=== PATIENT | female | born 1955 | race Native Hawaiian/Other Pacific Islander ===

== ENCOUNTER 2020-09-15 12:10 | Outpatient (CLI) | payer OTHER ==
[2020-09-15 12:37] LABS: PLATELET COUNT 284 K/uL (152-353)
[2020-09-15 13:00] LABS: POTASSIUM 3.9 mmol/L (3.6-5.2)
== END 2020-09-15 21:34 | disposition home or self-care (01) ==
LOC: LABW 12:10
PROVIDERS: ATTEND Nurse Practitioner Adult Health
DX: I48.0 Paroxysmal atrial fibrillation (principal); Z79.899 Other long term (current) drug therapy
CPT/HCPCS: 36415; 80053; 80061; 82248; 84436; 84443; 84479; 85027

== ENCOUNTER 2020-09-29 11:08 | Outpatient (CLI) | payer OTHER | END 2020-09-29 23:00 | disposition home or self-care (01) | LOC: LABW 11:08 | PROVIDERS: ATTEND Specialist | DX: I48.91 Unspecified atrial fibrillation (principal) | CPT/HCPCS: 36415; 85379 ==

== ENCOUNTER 2020-11-24 08:56 | Outpatient (CLI) | payer OTHER ==
[~2020-11-24] VITALS: Ht 30.5 cm; Wt 0.5 kg
== END 2020-11-24 19:08 | disposition home or self-care (01) ==
LOC: NM 08:56
PROVIDERS: ATTEND Nurse Practitioner
DX: I48.0 Paroxysmal atrial fibrillation (principal)
CPT/HCPCS: 93225; A9500; J2785